=== PATIENT | female | born 1995 | race Caucasian/White ===

== ENCOUNTER 2022-11-08 20:16 | Inpatient (IN) | payer OTHER, SELFPAY ==
[2022-11-08 20:36] VITALS: TEMP 36.2
[2022-11-08 20:37] VITALS: BP 117/76; PULSE 101
[2022-11-08 21:00] LABS: Bilirubin Urine NEGATIVE (NEGATIVE); Blood Urine MODERATE (NEGATIVE); Clarity Urine CLEAR (CLEAR); Color Urine LT. YELLOW (YELLOW); Glucose Urine UA NEGATIVE (NEGATIVE); Ketones Urine NEGATIVE (NEGATIVE); Leukocyte Esterase Urine SMALL (NEGATIVE); Nitrite Urine NEGATIVE (NEGATIVE); Protein Urine NEGATIVE (NEG/TRACE); Urobilinogen Urine 0.2 EU/dL (0.2-1.0); pH Urine 6.5 (5.0-9.0)
[2022-11-08 21:02] LABS: Urine Microscopic Indicated YES
[2022-11-08 21:07] LABS: Amnisure POSITIVE (NEGATIVE)
[2022-11-08 21:11] LABS: Bacteria Urine NONE SEEN #/HPF (NONE SEEN); Cast Seen? NONE SEEN #/LPF (NONE SEEN); Crystals Seen? None Seen #/HPF (None Seen); Mucus Urine NONE SEEN (NONE SEEN); Squamous Epithelial Cell Urine FEW #/LPF (NONE/RARE); Urine Culture Indicated NO
[2022-11-08 21:57] VITALS: BP 133/71; PULSE 93
[2022-11-08] MEDS: CEPHALEXIN 500 MG CAPSULE PO (22:27)
[2022-11-08] MEDS: ACETAMINOPHEN 500 MG TABLET 1000 MG PO (22:29)
[2022-11-08 22:39] VITALS: TEMP 36.8
[2022-11-08 23:57] VITALS: BP 132/72; PULSE 97
[2022-11-09] VITALS (34 sets, daily range): BP systolic 107–156; BP diastolic 60–99; PULSE 71–190; RESP 16–22; TEMP 36.4–37.4
[2022-11-09] MEDS: 0.9 % SODIUM CHLORIDE 1,000 ML 125 ML IV (00:08)
[2022-11-09 00:13] LABS: Amphetamine Screen Urine NEGATIVE (NEGATIVE); Barbiturates Screen Urine NEGATIVE (NEGATIVE); Benzodiazepines Screen Urine NEGATIVE (NEGATIVE); Buprenorphine Screen Urine NEGATIVE (NEGATIVE); Cannabinoid Screen Urine POSITIVE (NEGATIVE); Cocaine Screen Urine NEGATIVE (NEGATIVE); Methadone Screen Urine NEGATIVE (NEGATIVE); Methamphetamines Screen Urine NEGATIVE (NEGATIVE); Opiate Screen Urine NEGATIVE (NEGATIVE); Oxycodone Screen Urine NEGATIVE (NEGATIVE); Phencyclidine Screen Urine NEGATIVE (NEGATIVE); Tricyclic Antidepressant Urine NEGATIVE (NEGATIVE)
[2022-11-09 00:17] LABS: Hematocrit 35.4 % (36.0-48.0); Hemoglobin 11.9 g/dL (12.0-16.0); Mean Corpuscular HGB Conc 33.6 g/dL (29.9-35.2); Mean Corpuscular Hemoglobin 28.3 pg (26.7-34.0); Mean Corpuscular Volume 84.1 fL (81.0-99.0); Mean Platelet Volume 10.1 fL (9.5-13.5); Platelet Count 222 10^3/uL (150-450); Red Blood Count 4.21 10^6/uL (4.20-5.40); Red Cell Distribution Width 15.5 % (11.0-15.0); White Blood Count 15.8 10^3/uL (4.0-11.0)
[2022-11-09] MEDS: 0.9 % SODIUM CHLORIDE 1,000 ML 1000 ML IV (01:14)
[2022-11-09] MEDS: ROPIVACAINE HCL/PF 400 MG/200 ML PREMIX 10 MG EPIDURAL (01:17)
--- NOTE | 2022-11-09 03:33 | PM.OBHP ---
OB - H&P: HPI History of Present Illness Chief complaint: CONTRACTIONS : 3 Para: 2 Date of last menstrual period: 02/2022 Gestational age based on last menstrual period: [id number] Comments: spontaneous labor with SROM History of Present Dating criteria: LMP confirmed by 1st trimester US care: good care Ultrasounds: normal 1st trimester US and normal mid trimester US complications comment: none Medical complications OB: none Labs Blood type: O (+) positive Rubella: immune RPR/VDLR: nonreactive GBS status: negative HBsAG: negative Review of Systems ROS Status of ROS 10 or more systems reviewed and unremarkable except as noted in history and below Meds Home Medications and Allergies Allergies Allergy/AdvReac Type Severity Reaction Status Date / Time No Known Drug Allergies Allergy Verified 11/08/22 20:52 Exam Constitutional Vital Signs - 24 hr 11/08/22 20:36 11/08/22 20:37 11/08/22 21:57 Temperature 97.2 F L Pulse Rate 101 H 93 H Respiratory Rate Blood Pressure 117/76 133/71 H Oxygen Delivery Method 11/08/22 23:57 11/09/22 00:16 11/09/22 01:11 Temperature Pulse Rate 97 H 100 H 99 H Respiratory Rate Blood Pressure 132/72 H 145/99 H 135/88 H Oxygen Delivery Method 11/09/22 01:15 11/09/22 01:18 11/09/22 01:21 Temperature Pulse Rate 99 H 87 96 H Respiratory Rate Blood Pressure 115/72 131/79 H 120/73 H Oxygen Delivery Method 11/09/22 01:24 11/09/22 01:27 11/09/22 01:30 Temperature Pulse Rate 95 H 87 89 Respiratory Rate Blood Pressure 123/76 H 131/83 H 130/78 H Oxygen Delivery Method 11/09/22 01:33 11/09/22 01:36 11/09/22 01:39 Temperature Pulse Rate 104 H 98 H 111 H Respiratory Rate Blood Pressure 117/71 124/75 H 127/77 H Oxygen Delivery Method 11/09/22 01:42 11/09/22 01:45 11/09/22 01:48 Temperature Pulse Rate 105 H 95 H 103 H Respiratory Rate Blood Pressure 119/69 118/64 121/83 H Oxygen Delivery Method 11/09/22 01:54 11/09/22 02:14 11/09/22 02:25 Temperature Pulse Rate 108 H 72 190 H Respiratory Rate Blood Pressure 156/68 H 126/75 H 132/76 H Oxygen Delivery Method 11/09/22 02:40 11/09/22 02:54 11/09/22 03:09 Temperature Pulse Rate 98 H 104 H 112 H Respiratory Rate Blood Pressure 125/76 H 142/75 H 125/60 H Oxygen Delivery Method 11/08/22 22:39 11/09/22 01:19 11/09/22 01:21 Temperature 98.3 F 98.1 F Pulse Rate Respiratory Rate 22 Blood Pressure Oxygen Delivery Method Room Air Results Labs Labs: Short CBC 11/08/22 Range/Units 00:05 WBC 15.8 H (4.0-11.0) 10^3/uL Hgb 11.9 L (12.0-16.0) g/dL Hct 35.4 L (36.0-48.0) % Plt Count 222 (150-450) 10^3/uL Urine 11/08/22 Range/Units 20:30 Urine Color Lt. yellow (YELLOW) Urine Clarity Clear (CLEAR) Urine pH 6.5 (5.0-9.0) Ur Specific [place] 1.010 (1.005-1.025) Urine Protein Negative (NEG/TRACE) mg/dL Urine Glucose (UA) Negative (NEGATIVE) mg/dL ABG Attestation: I personally reviewed and interpreted this ABG as follows: Interpretation: normal in
--- NOTE | 2022-11-09 03:53 | PM.OBPNL ---
Pelvic Exam Dilation (cm): 2 Effacement (%): 100 Contractions Monitor mode: External Contraction pattern: Irregular Contraction phase: Resting Contraction intensity: Moderate Infant station: -2 Amniotic membrane status: Leaking status: Category I
--- NOTE | 2022-11-09 03:54 | PM.OBPRCVD ---
Procedure Procedure: with right labial repair and small firt degree repair Intrapartal events: None Induction method: none Delivery monitor: external FHT and external uterine Route of delivery: Episiotomy Description: none Laceration description: labial (right labia repair- straight cath inserted with return of clear, yellow urine ) Delivery repair: Vicryl (3-0 vicryl on C-T needle for 1st degree repair, 4-0 vicryl on S-H needle for R labial repair ) Estimated blood loss (mL): 250 Disposition: floor Delivery date: 11/09/22 (delivered at 0306 ) Gender: male presentation: vertex Placental delivery description: Spontaneous cord description: 3 Vessels heart rate - 1 minute: 100 bpm or Greater respiratory effort - 1 minute: Spontaneous/Strong Cry muscle tone - 1 minute: Active Movement reflex response - 1 minute: Prompt Response color - 1 minute: Pallor or Cyanosis total score - 1 minute: 8 heart rate - 5 minute: 100 bpm or Greater respiratory effort - 5 minute: Spontaneous/Strong Cry muscle tone - 5 minute: Active Movement reflex response - 5 minute: Prompt Response color - 5 minute: Bluish Hands or Feet total score - 5 minute: 9
[2022-11-09] MEDS: CEPHALEXIN 500 MG CAPSULE PO ×3 (06:07→21:41)
--- NOTE | 2022-11-09 08:49 | PC.NURSE ---
up to BR, darius care reviewed and bedlinens changed, saline lock discontinued
[2022-11-09] MEDS: ACETAMINOPHEN 500 MG TABLET 1000 MG PO (12:36)
--- NOTE | 2022-11-09 13:57 | SWNOTE1 ---
Pt was positive for marijuana on admission. SW met with pt to discuss drug screen and any discharge needs. Father of baby in room as well. Pt has 2 other children of her own that are 10 and 7. Father of baby has 3 other children of his own and they are 14,5, and 4. They do shared parenting and do have kids half the time. They do not have any open children service cases. Pt and Father of baby do have everything they need at home for baby; crib,car seat, clothing, diapers, etc. Pt is attempting to breast feed, she stated it is going well. Pt was positive for THC on admission and also on 05/09/2022 at beginning of . Pt does admit to eating THC gummies throughout due to her nausea she was feeling. Pt did smoke cigarettes, but quit once she found out she was . Pt does not plan on continuing gummies once discharged. Pt does not have medical marijuana card, her does. Pt and father of baby are appropriate with baby. [facility] did let parents know that SW is a mandated cub reporter and [employer] has to notify [facility] CPS. THey voiced understanding. [facility] made referral to [facility] CPS. [facility] completed HIPPA form and sent to
[2022-11-09] MEDS: IBUPROFEN 400 MG TABLET 800 MG PO ×2 (14:40→21:41)
--- NOTE | 2022-11-09 19:26 | W.PC.ACHO ---
Registration Status: ADM IN Primary Language: [place]er Preferred Language: [place] Report given to Jeronimo Fischer RN Active Medications Generic Name Dose Route Start Last Admin Trade Name Freq PRN Reason Stop Dose Admin Acetaminophen 1,000 mg 11/08/22 22:00 11/09/22 12:36 Acetaminophen 500 Mg Tablet PO 1,000 mg Q6H PRN Administration Pain Acetaminophen 650 mg 11/09/22 03:58 Acetaminophen 325 Mg Tablet PO Q6H PRN Mild Pain Al Hydroxide/Mg Hydroxide 2,400 mg 11/09/22 03:58 Magnesium Hydroxide 2,400 Mg/10 Ml Oral.Susp PO Q6H PRN Dyspepsia Benzocaine/Menthol 1 applic 11/09/22 03:58 11/09/22 06:07 Benzocaine/Menthol 85 Gram Bottle TOPICAL 1 applic DIRECTED PRN Administration Pain Calcium Carbonate 1,000 mg 11/08/22 22:00 Calcium Carbonate 1250 (500 Mg [place]) /5 Ml Oral.Susp PO TID PRN Heartburn Cephalexin 500 mg 11/08/22 22:00 11/09/22 14:40 Cephalexin 500 Mg Capsule PO 500 mg Q8H MATT Administration Sodium Chloride 1,000 mls @ 125 mls/hr 11/08/22 23:45 11/09/22 00:08 Sodium Chloride 0.9% 1,000 Ml IV 125 mls/hr .Q8H MATT Administration Ibuprofen 800 mg 11/09/22 14:00 11/09/22 14:40 Ibuprofen 400 Mg Tablet PO 800 mg Q8H MATT Administration Ondansetron HCl 4 mg 11/08/22 23:37 Ondansetron Pf 4 Mg/2 Ml Vial IV Q6H PRN Nausea And Vomiting Ondansetron HCl 4 mg 11/08/22 23:37 Ondansetron 4 Mg Rapdis Tablet SL Q6H PRN Nausea And Vomiting Simethicone 80 mg 11/09/22 03:58 Simethicone 80 Mg Tab.Chew PO QID PRN Abdominal Distention Witch Jennifer/Glycerin 1 each 11/09/22 03:58 11/09/22 06:07 Glycerin/Witch Jennifer 1 Each Jar TOPICAL 1 each DIRECTED PRN Administration Pain Zolpidem Tartrate 10 mg 11/08/22 22:00 Zolpidem Tartrate 10 Mg Tablet PO BEDTIME PRN Insomnia Diet Category Date Time Status Regular Consistency Diet Diet 11/09/22 Lunch Active Consults Category Date Time Status Consult to Nurse Staff Industrial Routine Cons 11/09/22 Ordered IV Insertion/Site Date of IV Line Insertion [ 11/09/22 Short PIV (<1.75 in) 20g left Hand] IV Insertion Time [Short PIV ( 00:06 <1.75 in) 20g left Hand] Neurology Patient orientation (short person,place,time,situation list) Respiratory Oxygen Delivery Method Room Air Cardiology Heart Sounds Regular
[2022-11-09] MEDS: ACETAMINOPHEN 325 MG TABLET 650 MG PO (19:59)
[2022-11-10] MEDS: IBUPROFEN 400 MG TABLET 800 MG PO (06:35)
[2022-11-10] MEDS: CEPHALEXIN 500 MG CAPSULE PO (06:54)
--- NOTE | 2022-11-10 07:16 | W.PC.ACHO ---
Registration Status: ADM IN Primary Language: Colombian Preferred Language: Colombian Active Medications Generic Name Dose Route Start Last Admin Trade Name Freq PRN Reason Stop Dose Admin Acetaminophen 1,000 mg 11/08/22 22:00 11/09/22 12:36 Acetaminophen 500 Mg Tablet PO 1,000 mg Q6H PRN Administration Pain Acetaminophen 650 mg 11/09/22 03:58 11/09/22 19:59 Acetaminophen 325 Mg Tablet PO 650 mg Q6H PRN Administration Mild Pain Al Hydroxide/Mg Hydroxide 2,400 mg 11/09/22 03:58 Magnesium Hydroxide 2,400 Mg/10 Ml Oral.Susp PO Q6H PRN Dyspepsia Benzocaine/Menthol 1 applic 11/09/22 03:58 11/09/22 06:07 Benzocaine/Menthol 85 Gram Bottle TOPICAL 1 applic DIRECTED PRN Administration Pain Calcium Carbonate 1,000 mg 11/08/22 22:00 Calcium Carbonate 1250 (500 Mg [place]) /5 Ml Oral.Susp PO TID PRN Heartburn Cephalexin 500 mg 11/08/22 22:00 11/10/22 06:54 Cephalexin 500 Mg Capsule PO 500 mg Q8H MATT Administration Sodium Chloride 1,000 mls @ 125 mls/hr 11/08/22 23:45 11/09/22 00:08 Sodium Chloride 0.9% 1,000 Ml IV 125 mls/hr .Q8H MATT Administration Ibuprofen 800 mg 11/09/22 14:00 11/10/22 06:35 Ibuprofen 400 Mg Tablet PO 800 mg Q8H MATT Administration Ondansetron HCl 4 mg 11/08/22 23:37 Ondansetron Pf 4 Mg/2 Ml Vial IV Q6H PRN Nausea And Vomiting Ondansetron HCl 4 mg 11/08/22 23:37 Ondansetron 4 Mg Rapdis Tablet SL Q6H PRN Nausea And Vomiting Simethicone 80 mg 11/09/22 03:58 Simethicone 80 Mg Tab.Chew PO QID PRN Abdominal Distention Witch Jennifer/Glycerin 1 each 11/09/22 03:58 11/09/22 06:07 Glycerin/Witch Jennifer 1 Each Jar TOPICAL 1 each DIRECTED PRN Administration Pain Zolpidem Tartrate 10 mg 11/08/22 22:00 Zolpidem Tartrate 10 Mg Tablet PO BEDTIME PRN Insomnia Diet Category Date Time Status Regular Consistency Diet Diet 11/09/22 Lunch Active Respiratory Oxygen Delivery Method Room Air Oxygen Delivery Method Room Air Oxygen Delivery Method Room Air Cardiology Heart Sounds Regular Bowels Bowel Pattern No Bowel Movement Renal Bladder Pattern Continent
[2022-11-10 09:12] VITALS: BP 116/74; PULSE 89
[2022-11-10 09:15] VITALS: TEMP 36.8
--- NOTE | 2022-11-10 10:57 | PM.OBPN ---
OB - PN: Subj Subjective Patient comments: no complaints [place] status: doing well and well Exam Narrative Exam Narrative: General exam was normal. Respiratory function is normal. Heart regular rate and rhythm. Breast feeding. Breasts are with no masses. Abdomen soft, nontender, uterus firm, nontender, lochia normal. . Extremities appear normal. Neurologically grossly intact. Psychiatric exam is normal. Constitutional Vital Signs - 24 hr 11/09/22 16:28 11/09/22 16:28 11/09/22 19:49 Temperature Pulse Rate 83 Respiratory Rate Blood Pressure 117/71 126/79 H Oxygen Delivery Method 11/09/22 19:49 11/09/22 23:02 11/09/22 23:02 Temperature Pulse Rate 83 71 Respiratory Rate Blood Pressure 118/68 Oxygen Delivery Method 11/10/22 09:12 11/09/22 20:06 11/09/22 20:06 Temperature 98.4 F Pulse Rate 89 Respiratory Rate 16 16 Blood Pressure 116/74 Oxygen Delivery Method Room Air Room Air 11/09/22 23:05 11/10/22 09:15 Temperature 97.6 F 98.2 F Pulse Rate Respiratory Rate 16 Blood Pressure Oxygen Delivery Method Room Air OB - PN: A/P Plan - Vaginal Delivery day: 1 Plan: routine care and discharge home Comment: We'll discharge home today. Prescription was given for Motrin 800 mg every eight hours. Patient was previously treated for urinary tract infection with Keflex. Prescription was given for Keflex 500 mg every six hours for seven days. Time Spent with Patient Time: Total time spent is greater than 50% in coordination of care (as documented) at patient's floor/unit and/or counseling patient: Total time spent with greater than 50% in coordination of care (as documented) at patient's floor/unit and/or counseling patient: less than 15 minutes
== END 2022-11-10 12:00 | disposition home or self-care (01) | DRG 560 ==
PROVIDERS: Admitting Provider Midwife; Visit Provider Obstetrics & Gynecology
DX: O23.43 Unspecified infection of urinary tract in pregnancy, third trimester (principal); O70.0 First degree perineal laceration during delivery; Z3A.38 38 weeks gestation of pregnancy; Z37.0 Single live birth; Z79.899 Other long term (current) drug therapy
CPT/HCPCS: 36415; 51702; 80307; 81003; 81015; 84112; 85027; 86850; 86900; 86901; 96374

== ENCOUNTER 2022-11-15 12:00 | Observation (INO) | payer OTHER, SELFPAY ==
[2022-11-15] VITALS (7 sets, daily range): BP systolic 135–150; BP diastolic 78–99; PULSE 64–84; RESP 16; TEMP 36.6; O2SAT 97
[2022-11-15] MEDS: ACETAMINOPHEN 500 MG TABLET 1000 MG PO (12:18)
[2022-11-15 12:24] LABS: Basophils Absolute Auto 0.1 10^3/uL (0.0-0.1); Basophils Percent Auto 0.7 % (0.2-2.0); Eosinophils Absolute Auto 0.2 10^3/uL (0.0-0.7); Eosinophils Percent Auto 2.2 % (0.9-7.0); Hematocrit 41.2 % (36.0-48.0); Hemoglobin 13.6 g/dL (12.0-16.0); Immature Granulocytes Abs Auto 0.07 10^3/uL (0.00-0.03); Immature Granulocytes Pct Auto 0.9 % (0.0-0.5); Lymphocytes Absolute Auto 1.2 10^3/uL (1.2-3.8); Mean Corpuscular Volume 84.8 fL (81.0-99.0); Mean Platelet Volume 9.2 fL (9.5-13.5); Monocytes Absolute Auto 0.4 10^3/uL (0.3-0.8); Monocytes Percent Auto 5.7 % (1.7-12.0); Neutrophils Absolute Auto 5.5 10^3/uL (1.4-6.5); Neutrophils Percent Auto 74.5 % (43.0-75.0); Platelet Count 317 10^3/uL (150-450); Red Blood Count 4.86 10^6/uL (4.20-5.40); Red Cell Distribution Width 14.3 % (11.0-15.0); White Blood Count 7.4 10^3/uL (4.0-11.0)
[2022-11-15 12:37] LABS: Alanine Aminotransferase 38 U/L (14-59); Albumin Globulin Ratio 0.7; Albumin Level 2.9 g/dL (3.4-5.0); Alkaline Phosphatase 101 U/L (46-116); Aspartate Amino Transferase 17 U/L (15-37); BUN Creatinine Ratio 18.5; Bilirubin Total 0.3 mg/dL (0.2-1.0); Calcium 9.1 mg/dL (8.5-10.1); Carbon Dioxide 24.3 mmol/L (21.0-32.0); Chloride 101 mmol/L (98-107); Estimated GFR (African America >60 (>=60); Estimated GFR (Non-African Ame >60 (>=60); Globulin 4.4 g/dL; Glucose 95 mg/dL (74-106); Potassium 4.3 mmol/L (3.5-5.1); Sodium 136 mmol/L (136-145); Total Protein 7.3 g/dL (6.4-8.2)
[2022-11-15 12:51] LABS: Creatinine Urine Random <13.00 mg/dL (20.00-300.00)
[2022-11-15 12:52] LABS: Total Protein Urine Random <6.0 mg/dL (<=11.9)
--- NOTE | 2022-11-15 13:15 | P.OBPN_ITS ---
OB - PN: Subj Subjective Narrative: patient presents today for appt with Marjorie- professional employer consultant and patient anxious and a little nervous. she was positive for THC when she delivered her baby 6 days ago. she did get a call from CPS and they spoke with her and they are also planning to come to her home. She is nervous about that. she also disclosed to Marjorie she had a headache yesterday, a little nauseated and lightheaded. She reported all of the info to me and we have decided to keep her in a room and observe her BP and order some labs. I also spoke with patient and she is in agreement to be observed at this time. orders given Exam Constitutional Vital Signs - 24 hr 11/15/22 12:12 11/15/22 12:42 11/15/22 13:12 Pulse Rate 72 73 64 Blood Pressure 140/88 H 141/78 H 141/82 H Results Labs Labs: Short CBC 11/15/22 Range/Units 12:15 WBC 7.4 (4.0-11.0) 10^3/uL Hgb 13.6 (12.0-16.0) g/dL Hct 41.2 (36.0-48.0) % Plt Count 317 (150-450) 10^3/uL BMP 11/15/22 12:15 Sodium 136 Potassium 4.3 Chloride 101 Carbon Dioxide 24.3 BUN 12.0 Creatinine 0.65 Glucose 95 Calcium 9.1 Liver Function 11/15/22 Range/Units 12:15 Total Bilirubin 0.3 (0.2-1.0) mg/dL AST 17 (15-37) U/L ALT 38 (14-59) U/L Alkaline Phosphatase 101 (46-116) U/L Albumin 2.9 L (3.4-5.0) g/dL OB - PN: A/P Time Spent with Patient Time: Total time spent is greater than 50% in coordination of care (as documented) at patient's floor/unit and/or counseling patient: Total time spent with greater than 50% in coordination of care (as documented) at patient's floor/unit and/or counseling patient: less than 15 minutes
--- NOTE | 2022-11-15 14:21 | PC.NURSE ---
Pt to room 251 for observation. Care relinquished to Laura SANDOVAL. Pt obtains urine for lab. SO holds baby.
== END 2022-11-15 13:38 | disposition home or self-care (01) ==
PROVIDERS: Admitting Provider Midwife; Visit Provider Midwife
DX: O90.89 Other complications of the puerperium, not elsewhere classified (principal); R51.9 Headache, unspecified; R11.0 Nausea; R42 Dizziness and giddiness; R45.0 Nervousness; F41.9 Anxiety disorder, unspecified
CPT/HCPCS: 36415; 80053; 82570; 84156; 85025; G0378; G0379